=== PATIENT | female | born 1990 | race Caucasian/White ===

== ENCOUNTER 2017-09-17 01:17 | Inpatient (IN) ==
[2017-09-17 01:38] LABS: Bilirubin,Urine Negative (Negative); Blood,Urine Negative (Negative); Clarity,Urine Cloudy (Clear); Color,Urine Yellow (Yellow); Glucose,Urine (UA) Normal (Normal); Ketones,Urine Negative (Negative); Leukocyte Esterase,Urine Negative (Negative); Nitrite,Urine Negative (Negative); PH,Urine 6.5 pH Units (5.0-8.0); Protein,Urine Negative (Neg-Trace); Specific Gravity,Urine 1.013 (1.010-1.025); Urobilinogen,Urine Normal (Normal)
[2017-09-17 01:39] LABS: Bacteria,Urine Few per hpf (None-Few); Hyaline Casts,Urine None Seen per lpf (None-Few); Squamous Epithelial Cell,Urine Many per lpf (None-Few)
[2017-09-17 01:43] LABS: Amphetamine Screen,Urine Negative ng/mL (Cutoff=1000); Barbiturate Screen,Urine Negative ng/mL (Cutoff=200); Benzodiazepines Screen,Urine Negative ng/mL (Cutoff=200); Cannabinoid Screen,Urine Negative ng/mL (Cutoff = 50); Cocaine Screen,Urine Negative ng/mL (Cutoff= 300); Opiate Screen,Urine Negative ng/mL (Cutoff=300); Phencyclidine Screen,Urine Negative ng/mL (Cutoff=25)
[2017-09-17 01:44] LABS: Basophils % 0.4 %; Eosinophils # 0.1 K/mcL (0.0-0.6); Eosinophils % 1.3 %; Hematocrit 46.1 % (35.3-44.9); Hemoglobin 15.4 g/dL (11.5-15.4); Immature Granulocytes % 0.3 % (0-4); Immature Platelets 3.6 % (1.1-6.1); Lymphocytes # 3.1 K/mcL (0.6-4.6); Lymphocytes % 29.3 %; Mean Corpuscular HGB Conc 33.4 g/dL (31.6-35.5); Mean Corpuscular Volume 86.8 fL (83.0-100.0); Mean Platelet Volume 10.1 fL (9.4-12.4); Monocytes # 0.4 K/mcL (0.0-1.3); Monocytes % 4.2 %; Neutrophils # 6.7 K/mcL (1.6-8.9); Platelet Count 253 K/mcL (140-400); Red Blood Count 5.31 M/mcL (3.82-4.97); Red Cell Distribution Width 13.6 % (11.5-14.5); Segmented Neutrophils % 64.5 %
[2017-09-17 01:58] LABS: Acetaminophen < 1.0 mcg/mL (10-30); Ethanol < 10 mg/dL (0-10); Salicylate < 5.0 mg/dL (15.0-30.0)
[2017-09-17 02:03] LABS: BUN/Creatinine Ratio 10 (6-26); Blood Urea Nitrogen 7 mg/dL (6-20); Calcium 10.2 mg/dL (8.6-10.3); Carbon Dioxide 21 mEq/L (23-29); Chloride 108 mEq/L (98-107); Glucose 132 mg/dL (70-105); Osmolality,Calculated 282 (280-300); Potassium 3.9 mEq/L (3.5-5.1); Sodium 136 mEq/L (136-145); eGFR For African Americans > 60 (> 60); eGFR For Non-African Americans > 60 (> 60)
--- NOTE | 2017-09-17 02:41 | Emergency Department Note ---
Disposition Clinical Impression: Suicidal ideation Disposition: Admitted As Inpatient Condition: Good Referrals: NONE,PCP [Primary Care Provider] - Forms: ED Satisfaction Letter Time of Disposition: 03:56 Psych HPI - General Chief Complaint: ED Psychiatric Symptoms Stated Complaint: SI Time Seen by Provider: 09/17/17 01:18 Source: patient, EMS Nursing Notes Reviewed: Yes Vital Signs Reviewed: Yes - History of Present Illness Pt complaint: suicidal ideation If medical clearance, reason: psychiatric condition Onset (ago): month(s) Duration: getting worse History of similar episodes: Yes Improves with: none Worsens with: none Context: significant life stressor (arguing with boyfriend, and unable to see her son) Alleged intoxication: No Associated Psychiatric Symptoms: depression, suicidal ideation, anxiety Associated symptoms: Reports: denies other symptoms Traumatic symptoms: denies traumatic injury Treatments prior to arrival: none Self harm or harm to others: admits thoughts of self harm, has plan (slicing wrist) - Related Data Previous Rx's Medication Instructions Recorded Doxycycline 100 mg PO BID #14 capsule 05/14/17 Loratadine [Claritin] 10 mg PO DAILY #5 tablet 05/14/17 Cephalexin [Keflex] 500 mg PO BID #20 capsule 09/08/17 Gabapentin [Gralise] 300 mg PO DAILY #10 tab.er.24h 09/08/17 Sulfamethoxazole/Trimeth DS 1 each PO BID #6 tablet 09/09/17 [Bactrim DS] Buspirone HCl [Buspar] 10 mg PO BID #20 tablet 09/11/17 HydrOXYzine Pamoate [Vistaril] 50 mg PO BID #20 capsule 09/11/17 Quetiapine Fumarate [SEROquel] 25 mg PO HS #20 tablet 09/11/17 Allergies Allergy/AdvReac Type Severity Reaction Status Date / Time Penicillins Allergy Anaphylaxis Verified 09/11/17 23:32 citalopram [From Celexa] AdvReac Irritable Verified 09/11/17 23:32 Paroxetine [From Paxil] AdvReac Irritable Verified 09/11/17 23:32 All systems ED: reviewed and negative except as stated. Constitutional: Denies: fever, chills Eyes: Denies: vision change ENT ED: Denies: throat pain Cardiovascular: Denies: palpitations Respiratory: Denies: dyspnea Gastrointestinal: Denies: abdominal pain Musculoskeletal: Reports: neck pain (chronic) Integumentary: Reports: abrasion (right forearm) Psychiatric: Reports: anxiety, depression, suicidal thoughts. Denies: homicidal thoughts, auditory hallucinations, visual hallucinations Endocrine: Denies: fatigue Hematological/Lymphatic: Denies: easy bleeding Allergic/Immunologic: Denies: facial swelling Past Medical History - Past Medical History Medical history: Reports: other Psychiatric history: Reports: anxiety, bipolar, depression, schizophrenia [employer] history: Reports: non-contributory - Social History Smoking Status: Current every day smoker Smokeless Tobacco Status: No Alcohol use: Reports: none Drug use: Reports: none Physical Exam - General Limitations: no limitations General appearance: alert, in no apparent distress - Head Head exam: normocephalic - Eye Eye exam: Present: EOMI - ENT ENT exam: mucous membranes moist - Neck Neck exam: Present: full ROM, tenderness. Absent: meningismus, lymphadenopathy - Chest Chest inspection: Present: symmetric chest wall rise - Respiratory Respiratory exam: Absent: respiratory distress - Cardiovascular Cardiovascular exam: Present: normal rhythm - Abdominal Exam Abdominal exam: Present: soft, Non-Tender - Extremities Exam Extremities exam: Present: normal inspection, full ROM, normal capillary refill - Back Exam Back exam: Present: full ROM - Neurological Exam Neurological exam: Present: alert, oriented X3 - Psychiatric Psychiatric exam: Present: normal affect, normal mood. Absent: suicidal ideation - Skin Skin exam: Present: warm, dry, intact, normal color. Absent: rash, cyanosis, diaphoresis Course Course Narrative: Patient presents with suicidal ideation. She mentions a history of previous suicide attempts, anxiety and depression. . She does mention significant life stressors with argument with her boyfriend, and unable to her son. Pt has documented h/o anxiety, bipolar, depression, schizophrenia. Her vitals within normal limits. She is in no acute distress and does not look toxic. We will attempt to medically clear her and if so she will be evaluated by [facility]. - Reevaluation(s) Reevaluation #1: Patient was medically cleared and evaluated by [facility] staff. I discussed patient with behavior health nurse Tra Vanegas RN, who had discussed pt with Dr Trujillo. Pt will be admitted to [facility] for further evaluation and stabilization. Patient was also discussed with Dr. Perez who signed pink slip. Time: 03:56 Vital Signs Temperature 97.6 F 09/17/17 01:18 Pulse Rate 87 09/17/17 01:18 Respiratory Rate 16 09/17/17 01:18 Blood Pressure 102/72 09/17/17 01:18 O2 Sat by Pulse Oximetry 97 09/17/17 01:18 Temperature 97.6 F 09/17/17 01:18 Pulse Rate 87 09/17/17 01:18 Respiratory Rate 16 09/17/17 01:18 Blood Pressure 102/72 09/17/17 01:18 O2 Sat by Pulse Oximetry 97 09/17/17 01:18 Oxygen Delivery Oxygen Delivery Room Air Psych - Lab Data Result diagrams: 09/17/17 01:38 09/17/17 01:38 Lab Results 09/17/17 09/17/17 09/17/17 Range/Units 01:29 01:29 01:29 WBC (4.3-11.1) K/mcL RBC (3.82-4.97) M/mcL Hgb (11.5-15.4) g/dL Hct (35.3-44.9) % MCV (83.0-100.0) fL MCH (28.0-33.3) pg MCHC (31.6-35.5) g/dL RDW (11.5-14.5) % Plt Count (140-400) K/mcL MPV (9.4-12.4) fL Immature Gran % (0-4) % Seg Neutrophils % % Lymphocytes % % Monocytes % % Eosinophils % % Basophils % % Neutrophils # (1.6-8.9) K/mcL Lymphocytes # (0.6-4.6) K/mcL Monocytes # (0.0-1.3) K/mcL Eosinophils # (0.0-0.6) K/mcL Basophils # (0.0-0.2) K/mcL Immature Plt Fraction (1.1-6.1) % Sodium (136-145) mEq/L Potassium (3.5-5.1) mEq/L Chloride (98-107) mEq/L Carbon Dioxide (23-29) mEq/L BUN (6-20) mg/dL Creatinine (0.60-1.20) mg/dL Est GFR ( Amer) (> 60) Est GFR (Non-Af Amer) (> 60) BUN/Creatinine Ratio (6-26) Glucose (70-105) mg/dL Calculated Osmolality (280-300) Calcium (8.6-10.3) mg/dL Urine Color Yellow (Yellow) Urine Clarity Cloudy A (Clear) Urine pH 6.5 (5.0-8.0) pH Units Ur Specific [place] 1.013 (1.010-1.025) Urine Protein Negative (Neg-Trace) mg/dL Urine Glucose (UA) Normal (Normal) mg/dL Urine Ketones Negative (Negative) mg/dL Urine Blood Negative (Negative) Urine Nitrite Negative (Negative) Urine Bilirubin Negative (Negative) Urine Urobilinogen Normal (Normal) mg/dL Ur Leukocyte Esterase Negative (Negative) Urine Microscopic RBC 3-5 H (0-3) per hpf Urine Microscopic WBC 3-5 H (0-3) per hpf Ur Squamous Epith Cells Many H (None-Few) per lpf Urine Bacteria Few (None-Few) per hpf Hyaline Casts None Seen (None-Few) per lpf Urine Test Negative (Negative) Salicylates (15.0-30.0) mg/dL Urine Opiates Screen Negative (Mvtlqa=355) ng/mL Acetaminophen (10-30) mcg/mL Ur Barbiturates Screen Negative (Witpin=616) ng/mL Ur Phencyclidine Scrn Negative (Cutoff=25) ng/mL Ur Amphetamines Screen Negative (Wtwwqq=7733) ng/mL U Benzodiazepines Scrn Negative (Bhmaqi=650) ng/mL Urine Cocaine Screen Negative (Cutoff= 300) ng/mL U Marijuana (THC) Screen Negative (Cutoff = 50) ng/mL Ethyl Alcohol (0-10) mg/dL 18 09/17/17 Range/Units 01:38 01:38 WBC 10.5 (4.3-11.1) K/mcL RBC 5.31 H (3.82-4.97) M/mcL Hgb 15.4 (11.5-15.4) g/dL Hct 46.1 H (35.3-44.9) % MCV 86.8 (83.0-100.0) fL MCH 29.0 (28.0-33.3) pg MCHC 33.4 (31.6-35.5) g/dL RDW 13.6 (11.5-14.5) % Plt Count 253 (140-400) K/mcL MPV 10.1 (9.4-12.4) fL Immature Gran % 0.3 (0-4) % Seg Neutrophils % 64.5 % Lymphocytes % 29.3 % Monocytes % 4.2 % Eosinophils % 1.3 % Basophils % 0.4 % Neutrophils # 6.7 (1.6-8.9) K/mcL Lymphocytes # 3.1 (0.6-4.6) K/mcL Monocytes # 0.4 (0.0-1.3) K/mcL Eosinophils # 0.1 (0.0-0.6) K/mcL Basophils # 0.0 (0.0-0.2) K/mcL Immature Plt Fraction 3.6 (1.1-6.1) % Sodium 136 (136-145) mEq/L Potassium 3.9 (3.5-5.1) mEq/L Chloride 108 H (98-107) mEq/L Carbon Dioxide 21 L (23-29) mEq/L BUN 7 (6-20) mg/dL Creatinine 0.71 (0.60-1.20) mg/dL Est GFR ( Amer) > 60 (> 60) Est GFR (Non-Af Amer) > 60 (> 60) BUN/Creatinine Ratio 10 (6-26) Glucose 132 H (70-105) mg/dL Calculated Osmolality 282 (280-300) Calcium 10.2 (8.6-10.3) mg/dL Urine Color (Yellow) Urine Clarity (Clear) Urine pH (5.0-8.0) pH Units Ur Specific [place] (1.010-1.025) Urine Protein (Neg-Trace) mg/dL Urine Glucose (UA) (Normal) mg/dL Urine Ketones (Negative) mg/dL Urine Blood (Negative) Urine Nitrite (Negative) Urine Bilirubin (Negative) Urine Urobilinogen (Normal) mg/dL Ur Leukocyte Esterase (Negative) Urine Microscopic RBC (0-3) per hpf Urine Microscopic WBC (0-3) per hpf Ur Squamous Epith Cells (None-Few) per lpf Urine Bacteria (None-Few) per hpf Hyaline Casts (None-Few) per lpf Urine Test (Negative) Salicylates < 5.0 L (15.0-30.0) mg/dL Urine Opiates Screen (Iekppi=780) ng/mL Acetaminophen < 1.0 L (10-30) mcg/mL Ur Barbiturates Screen (Nsmkqf=547) ng/mL Ur Phencyclidine Scrn (Cutoff=25) ng/mL Ur Amphetamines Screen (Jqjlvz=6981) ng/mL U Benzodiazepines Scrn (Ronttm=621) ng/mL Urine Cocaine Screen (Cutoff= 300) ng/mL U Marijuana (THC) Screen (Cutoff = 50) ng/mL Ethyl Alcohol < 10 (0-10) mg/dL Psychiatric Medical Clearance - Medical Clearance Checklist Medical History: Panic attack (Acute) Depression (Acute) Fall (Acute) Left hip pain (Acute) Adverse reaction to drug (Inactive) Bronchitis (Inactive) Sinusitis (Inactive) UTI (urinary tract infection) (Inactive) No Social History Section defined Current Vitals: Last Vital Signs Temp 97.6 F 09/17/17 01:18 Pulse 87 09/17/17 01:18 Resp 16 09/17/17 01:18 BP 102/72 09/17/17 01:18 Pulse Ox 97 09/17/17 01:18 Psychiatric Lab Panel: Drug Levels and Toxicity 09/17/17 09/17/17 01:29 01:38 Urine Opiates Screen Negative Acetaminophen < 1.0 L Ur Barbiturates Screen Negative Ur Phencyclidine Scrn Negative Ur Amphetamines Screen Negative U Benzodiazepines Scrn Negative Urine Cocaine Screen Negative U Marijuana (THC) Screen Negative Ethyl Alcohol < 10 Abnormal Labs: Abnormal lab results RBC 5.31 M/mcL (3.82-4.97) H 09/17/17 01:38 Hct 46.1 % (35.3-44.9) H 09/17/17 01:38 Chloride 108 mEq/L (98-107) H 09/17/17 01:38 Carbon Dioxide 21 mEq/L (23-29) L 09/17/17 01:38 Glucose 132 mg/dL (70-105) H 09/17/17 01:38 Urine Clarity Cloudy (Clear) A 09/17/17 01:29 Urine Microscopic RBC 3-5 per hpf (0-3) H 09/17/17 01:29 Urine Microscopic WBC 3-5 per hpf (0-3) H 09/17/17 01:29 Ur Squamous Epith Cells Many per lpf (None-Few) H 09/17/17 01:29 Salicylates < 5.0 mg/dL (15.0-30.0) L 09/17/17 01:38 Acetaminophen < 1.0 mcg/mL (10-30) L 09/17/17 01:38 Statement of Medical Clearance: I have evaluated the patient, reviewed diagnostic information, and certify that the patient's medical condition is sufficiently stable that transfer to the psychiatric unit does not pose a significant risk of deterioration.
--- NOTE | 2017-09-17 02:51 | Emergency Department Note ---
START Narrative - START START: I examined this patient and my medical decision-making was reviewed with the emergency medicine resident. I agree with the documented findings, disposition and treatment plan as described except to the extent set forth below. Patient seen with physician medical billing assistant Deny Magallanes, Please see a copy of his note for details of the H&P, ED evaluation, management and disposition. I have independently evaluated the patient and confirmed appropriate portions of the history and physical exam. Briefly: A 27 year old email patient is medically clear. Patient is being seen by mental health services. Disposition pending.
[2017-09-17] MEDS ORDERED: Haloperidol Lactate 5 MG/ML VIAL IM PRN (04:33)
[2017-09-17] MEDS ORDERED: *HR* LORazepam 2 MG/ML VIAL IM PRN (04:33)
[2017-09-17] MEDS ORDERED: Mag Hydrox/Al Hydrox/Simeth 30 ML UDC PO PRN (04:33)
[2017-09-17] MEDS ORDERED: MOM Conc 10 ML UD.LIQ PO PRN (04:33)
[2017-09-17] MEDS ORDERED: *HR* LORazepam 1 MG TABLET PO PRN (04:33)
[2017-09-17] MEDS: Ibuprofen 400 MG TABLET PO PRN ×2 (05:07→17:12)
--- NOTE | 2017-09-17 11:35 | Psychiatry History & Physical ---
Date of Encounter: 09/17/17 Time of Encounter: 11:30 History of Present Illness Patient Stated Chief Complaint: suicida ideation Medicare Admission Attestation: For traditional Medicare patients the provided hospital inpatient services are reasonable and necessary and in the case of services not specified as inpatient -only under 42 CFR 419.22 (n), that they are appropriately provided as inpatient services in accordance 42 CFR 412.3. For Critical Access Hospital the patient may reasonably be expected to be discharged or transferred to a hospital within 96 hours after admission to the Critical Access Hospital. Admitted From: Home Plans for Post Hospital Care: Home History of Present Illness: Ms. Bowie is a 27 year old female who was admitted secondary to suicidal ideation. Reports depression with SI off and on for the past ten years. Multiple prior hospitalizations in [place] where she is from. Moved here two months ago to be with boyfriend. No mental health linkage yet. Claims she previously took Seroquel, Zoloft, Neurontin, and Buspar with good results. Very focused on receiving Neurontin. Physically she has a pinched nerve in her back/leg and some urinary incontinence. Also reports she has been falling a lot. Recently injured her neck in a fall. Claims she has torn ligaments and is supposed to wear a neck brace. Boyfriend to bring in brace. Started cutting with a razor for the first time approx two weeks ago. Boyfriend told her she needed to come into the hospital and get help if she wants to continue to live with him. No substance abuse issues other than occasional THC use. Tox screen negative. Suspect there are some developmental/cognitive issues as well. Unsophisticated. Past Med Surg Social Fam HX - Past Medical History Medical history: asthma, diabetes, other - Past Psychiatric History Psychiatric history: Reports: anxiety, bipolar, depression, previous psychiatric hospitalization Family psychiatric history: Unknown Family History of Suicide: Unknown - Social History Smoking Status: Current every day smoker Smokeless Tobacco Status: No Alcohol use: none Drug use: marijuana Medications & Allergies Doxycycline 100 mg PO BID #14 capsule 05/14/17 [Rx] Loratadine [Claritin] 10 mg PO DAILY #5 tablet 05/14/17 [Rx] Cephalexin [Keflex] 500 mg PO BID #20 capsule 09/08/17 [Rx] Gabapentin [Gralise] 300 mg PO DAILY #10 tab.er.24h 09/08/17 [Rx] Sulfamethoxazole/Trimeth DS [Bactrim DS] 1 each PO BID #6 tablet 09/09/17 [Rx] Buspirone HCl [Buspar] 10 mg PO BID #20 tablet 09/11/17 [Rx] HydrOXYzine Pamoate [Vistaril] 50 mg PO BID #20 capsule 09/11/17 [Rx] Quetiapine Fumarate [SEROquel] 25 mg PO HS #20 tablet 09/11/17 [Rx] 3 Allergy/AdvReac Type Severity Reaction Status Date / Time Penicillins Allergy Anaphylaxis Verified 09/11/17 23:32 citalopram [From Celexa] AdvReac Irritable Verified 09/11/17 23:32 Paroxetine [From Paxil] AdvReac Irritable Verified 09/11/17 23:32 Review of Systems Constitutional: Denies: fever, chills, weakness, weight change Eyes: Denies: eye pain, vision change Ears, Nose, Throat: Denies: ear pain, throat pain, dental pain, hearing loss, congestion Cardiovascular: Denies: chest pain, palpitations, dyspnea on exertion Respiratory: Denies: cough, dyspnea, wheezes Gastrointestinal: Denies: abdominal pain, nausea, vomiting, diarrhea, constipation Genitourinary male: Denies: urgency, dysuria, frequency, genital lesions Genitourinary female: Reports: urgency. Denies: dysuria, frequency, abnormal menses, dyspareunia Musculoskeletal: Reports: back pain Integumentary: Denies: rash, lesions, pruritus Neurological: Reports: weakness Endocrine: Denies: fatigue, heat or cold intolerance Hematologic/Lymphatic: Denies: easy bruising, lymphadenopathy Allergic/Immunologic: Denies: urticaria, itchy eyes Mental Status Exam Patient orientation: Yes Person, Yes Time, Yes Place Level of alertness: Alert Patient appearance: Appropriate Behavior: calm, cooperative Psychomotor activity: Normal Eye contact: Maintains Eye Contact Mood description: Depressed Affect description: congruent with mood Speech volume: Normal Thought process: [place] Thought content: Yes Suicidal ideation, No Homicidal ideation, No Overt delusions Perceptual disturbances: No Auditory hallucinations, No Visual hallucinations Attention span: Capable of Focused Attention Memory description: Grossly Intact Patient reliability: Reliable Historian Intelligence estimate: Below Average Judgment: Limited Insight: Partial Exam - HEENT Head exam IM: Present: atraumatic Eye exam IM: Present: EOMI ENT exam IM: Present: mucous membranes moist - Neurological Neurological exam IM: Present: alert, oriented X3 - Respiratory Respiratory exam IM: Present: CTAB - GI/Abdominal GI/Abdominal exam IM: Present: normal bowel sounds - Extremities Extremities exam IM: Present: full ROM - Skin Skin exam IM: Present: normal color Results - Vital Signs Vital signs: Temp Pulse Resp BP Pulse Ox 98.8 F 81 16 119/64 97 09/17/17 09:00 09/17/17 09:00 09/17/17 09:00 09/17/17 09:00 09/17/17 01:18 - Labs Labs: Laboratory Last Values WBC 10.5 K/mcL (4.3-11.1) 09/17/17 01:38 RBC 5.31 M/mcL (3.82-4.97) H 09/17/17 01:38 Hgb 15.4 g/dL (11.5-15.4) 09/17/17 01:38 Hct 46.1 % (35.3-44.9) H 09/17/17 01:38 MCV 86.8 fL (83.0-100.0) 09/17/17 01:38 MCH 29.0 pg (28.0-33.3) 09/17/17 01:38 MCHC 33.4 g/dL (31.6-35.5) 09/17/17 01:38 RDW 13.6 % (11.5-14.5) 09/17/17 01:38 Plt Count 253 K/mcL (140-400) 09/17/17 01:38 MPV 10.1 fL (9.4-12.4) 09/17/17 01:38 Immature Gran % 0.3 % (0-4) 09/17/17 01:38 Seg Neutrophils % 64.5 % 09/17/17 01:38 Lymphocytes % 29.3 % 09/17/17 01:38 Monocytes % 4.2 % 09/17/17 01:38 Eosinophils % 1.3 % 09/17/17 01:38 Basophils % 0.4 % 09/17/17 01:38 Neutrophils # 6.7 K/mcL (1.6-8.9) 09/17/17 01:38 Lymphocytes # 3.1 K/mcL (0.6-4.6) 09/17/17 01:38 Monocytes # 0.4 K/mcL (0.0-1.3) 09/17/17 01:38 Eosinophils # 0.1 K/mcL (0.0-0.6) 09/17/17 01:38 Basophils # 0.0 K/mcL (0.0-0.2) 09/17/17 01:38 Immature Plt Fraction 3.6 % (1.1-6.1) 09/17/17 01:38 Sodium 136 mEq/L (136-145) 09/17/17 01:38 Potassium 3.9 mEq/L (3.5-5.1) 09/17/17 01:38 Chloride 108 mEq/L (98-107) H 09/17/17 01:38 Carbon Dioxide 21 mEq/L (23-29) L 09/17/17 01:38 BUN 7 mg/dL (6-20) 09/17/17 01:38 Creatinine 0.71 mg/dL (0.60-1.20) 09/17/17 01:38 Est GFR ( Amer) > 60 (> 60) 09/17/17 01:38 Est GFR (Non-Af Amer) > 60 (> 60) 09/17/17 01:38 BUN/Creatinine Ratio 10 (6-26) 09/17/17 01:38 Glucose 132 mg/dL (70-105) H 09/17/17 01:38 Calculated Osmolality 282 (280-300) 09/17/17 01:38 Calcium 10.2 mg/dL (8.6-10.3) 09/17/17 01:38 Urine Color Yellow (Yellow) 09/17/17 01:29 Urine Clarity Cloudy (Clear) A 09/17/17 01:29 Urine pH 6.5 pH Units (5.0-8.0) 09/17/17 01:29 Ur Specific [place] 1.013 (1.010-1.025) 09/17/17 01:29 Urine Protein Negative mg/dL (Neg-Trace) 09/17/17 01: Urine Glucose (UA) Normal mg/dL (Normal) 09/17/17 01: Urine Ketones Negative mg/dL (Negative) 09/17/17 01:29 Urine Blood Negative (Negative) 09/17/17 01:29 Urine Nitrite Negative (Negative) 09/17/17 01:29 Urine Bilirubin Negative (Negative) 09/17/17 01:29 Urine Urobilinogen Normal mg/dL (Normal) 09/17/17 01:29 Ur Leukocyte Esterase Negative (Negative) 09/17/17 01:29 Urine Microscopic RBC 3-5 per hpf (0-3) H 09/17/17 01:29 Urine Microscopic WBC 3-5 per hpf (0-3) H 09/17/17 01:29 Ur Squamous Epith Cells Many per lpf (None-Few) H 09/17/17 01:29 Urine Bacteria Few per hpf (None-Few) 09/17/17 01:29 Hyaline Casts None Seen per lpf (None-Few) 09/17/17 01:29 Urine Test Negative (Negative) 09/17/17 01:29 Salicylates < 5.0 mg/dL (15.0-30.0) L 09/17/17 01:38 Urine Opiates Screen Negative ng/mL (Ecarki=721) 09/17/17 01:29 Acetaminophen < 1.0 mcg/mL (10-30) L 09/17/17 01:38 Ur Barbiturates Screen Negative ng/mL (Gulfjy=856) 09/17/17 01:29 Ur Phencyclidine Scrn Negative ng/mL (Cutoff=25) 09/17/17 01:29 Ur Amphetamines Screen Negative ng/mL (Dzmmzi=2108) 09/17/17 01:29 U Benzodiazepines Scrn Negative ng/mL (Warwge=535) 09/17/17 01:29 Urine Cocaine Screen Negative ng/mL (Cutoff= 300) 09/17/17 01:29 U Marijuana (THC) Screen Negative ng/mL (Cutoff = 50) 09/17/17 01:29 Ethyl Alcohol < 10 mg/dL (0-10) 09/17/17 01:38 Assessment and Plan (1) Bipolar 2 disorder Current visit: Yes Status: Acute Plan: Admit inpatient for safety and stabilization, Close observation, Suicide Precautions per unit protocol, Encourage participation in unit milieu, Group Therapy, Monitor sleep, Monitor appetite Risks, benefits, side effects, alternatives discussed w/pt: Yes Patient agreeable to treatment: Yes Plans for Post Hospital Care: Home Estimated Length of Stay (Days): 3
[2017-09-17] MEDS: Gabapentin 300 MG CAPSULE PO SCH ×2 (15:02→21:11)
[2017-09-18] MEDS: Gabapentin 300 MG CAPSULE PO SCH ×3 (08:51→20:57)
[2017-09-18] MEDS: Ibuprofen 400 MG TABLET PO PRN ×3 (10:27→22:32)
--- NOTE | 2017-09-18 13:21 | Psychiatry Progress Note ---
Date of Encounter: 09/19/17 Time of Encounter: 13:05 Subjective Interval history: Patient tells me "I am doing pretty good today". She states that she is glad to be back on medication and denies any side effects. She states that she slept 3 to 4 hours last night. When I ask her about thoughts regarding hurting herself she states that she only cut on herself once 2 weeks ago and has not felt the urge to cut on herself today. She states that she is not suicidal has been thinking about those statements she made at admission. She states that she does not want to because she loves her son and wants to be in his life. She also misses her boyfriend and her dog. She states that she has been off her medication since leaving [place] a couple months ago and is glad she is getting stabilized on her medications. She is hopeful to be discharge soon. She denies suicidal homicidal ideation she denies auditory or visual hallucinations. She denies any S/S of depression or anxiety. Objective: Exam Patient orientation: Yes Person, Yes Time, Yes Place, Yes Circumstance Level of alertness: Alert Patient appearance: Appropriate Behavior: nervous Psychomotor activity: Normal Eye contact: Fleeting Contact Mood description: Anxious Affect description: congruent with mood Speech pattern: Normal rate, Normal rhythm, Normal tone Speech volume: Normal Thought process: Intact Judgment: Fair Insight: Partial Results - Vital Signs Vital Signs: Temp Pulse Resp BP Pulse Ox 97.8 F 54 16 82/51 97 09/18/17 09:00 09/18/17 09:00 09/18/17 09:00 09/18/17 09:00 09/17/17 01:18 Assessment and Plan (1) Bipolar 2 disorder Current visit: Yes Status: Acute Plan: Continue hospitalization, Close observation, Suicide Precautions per unit protocol, Encourage participation in unit milieu, Group Therapy, Monitor sleep Risks, benefits, side effects, alternatives discussed w/pt: Yes (Continue to stabilize on medications that were restarted.) Patient agreeable to treatment : Yes Consult Discharge Plan - Plan Referrals: [facility] [Outside] - 09/27/17 10:30 am (The above appointment is with Amy Ortiz, counselor at [facility]. Your first appointment will be very thorough and the total appointment time will take between two and three hours. You will be completing paperwork, meeting with a counselor and a nurse, and developing a treatment plan. You will receive follow- up appointments for on-going services , which could include community support, mental health and substance abuse counseling, groups/partial hospitalization programming, medication assisted treatment, and psychiatric medication management. Please bring the following with you to your first visit to the clinic: 1) proof of household income (two consecutive pay stubs, social security award letter, bank statement, statement letter from [facility], child support statement, IRS 1040 or W2 form, or a statement from the person who financially supports you stating they help provide for your basic needs), 2) proof of residency (drivers license, a piece of mail showing your address, a statement from person you live with verifying you live at their address), 3) your social security card, 4) photo ID, and 5) your insurance card (if you have commercial insurance you must call to obtain a prior authorization number before you arrive to your first appointment). If you do not bring these items, you will not be seen. ) Kira Zavaleta [Advanced Practice Nurse] - 09/24/17 9:30 am (The above appointment is with Kira Zavaleta CNP, at Primary [facility] within [facility]. This appointment is to establish you with a primary care provider. Your needs for medication will be assessed and treated as indicated as well. Please arrive 15 minutes early to complete paperwork. Please bring your insurance card, photo ID and list of current medications to your first appointment. The above appointment(s) reflects first availability. You may contact the office regularly to check for cancellations that may allow you to be seen sooner.)
[2017-09-18] MEDS: Nicotine 21 MG PATCH.TD24 TD SCH (18:52)
[2017-09-18] MEDS: hydrOXYzine pamoate 25 MG CAPSULE PO PRN (22:32)
[2017-09-19] MEDS: Ibuprofen 400 MG TABLET PO PRN ×2 (05:40→17:52)
--- NOTE | 2017-09-19 08:46 | Psychiatry Progress Note ---
Date of Encounter: 09/19/17 Time of Encounter: 08:45 Subjective Interval history: Patient tells me today "I am doing better, a lot better". She states her anxiety and depression are have improved greatly with restarting her medications. She denies any side effects of medications. She states her mood is less up-and-down and she is focused on the future more. She is engaging on the unit going to groups. She is sleeping without problems, having slept 8 hours last night. She denies suicidal/homicidal ideation, auditory or visual hallucinations. She is working with the pediatric social worker today for discharge planning to get her appointment set up for probable discharge tomorrow. Objective: Exam Patient orientation: Yes Person, Yes Time, Yes Circumstance Level of alertness: Alert Patient appearance: Well Groomed Behavior: anxious (mildly) Psychomotor activity: Normal Eye contact: Minimal Contact Mood description: Anxious Affect description: congruent with mood Speech pattern: Normal rate, Normal rhythm, Normal tone Speech volume: Normal Thought process: Intact, Linear Thought content: Yes Intact Judgment: Fair Insight: Partial Results - Vital Signs Vital Signs: Temp Pulse Resp BP Pulse Ox 99.3 F 56 18 99/60 97 09/18/17 21:00 09/18/17 21:00 09/18/17 21:00 09/18/17 21:00 09/17/17 01:18 Assessment and Plan (1) Bipolar 2 disorder Current visit: Yes Status: Acute Plan: Continue hospitalization, Close observation, Encourage participation in unit milieu, Group Therapy, Monitor sleep Risks, benefits, side effects, alternatives discussed w/pt: Yes (Continue to stabilize on medications that were restarted.) Patient agreeable to treatment: Yes Consult Discharge Plan - Plan Referrals: [facility] [Outside] - 09/27/17 10:30 am (The above appointment is with Amy Ortiz, counselor at [facility]. Your first appointment will be very thorough and the total appointment time will take between two and three hours. You will be completing paperwork, meeting with a counselor and a nurse, and developing a treatment plan. You will receive follow- up appointments for on-going services , which could include community support, mental health and substance abuse counseling, groups/partial hospitalization programming, medication assisted treatment, and psychiatric medication management. Please bring the following with you to your first visit to the clinic: 1) proof of household income (two consecutive pay stubs, social security award letter, bank statement, statement letter from [facility], child support statement, IRS 1040 or W2 form, or a statement from the person who financially supports you stating they help provide for your basic needs), 2) proof of residency (drivers license, a piece of mail showing your address, a statement from person you live with verifying you live at their address), 3) your social security card, 4) photo ID, and 5) your insurance card (if you have commercial insurance you must call to obtain a prior authorization number before you arrive to your first appointment). If you do not bring these items, you will not be seen. ) Kira Zavaleta [Advanced Practice Nurse] - 09/24/17 9:30 am (The above appointment is with Kira Zavaleta CNP, at Primary [facility] within [facility]. This appointment is to establish you with a primary care provider. Your needs for medication will be assessed and treated as indicated as well. Please arrive 15 minutes early to complete paperwork. Please bring your insurance card, photo ID and list of current medications to your first appointment. The above appointment(s) reflects first availability. You may contact the office regularly to check for cancellations that may allow you to be seen sooner.)
[2017-09-19] MEDS: Gabapentin 300 MG CAPSULE PO SCH ×3 (09:11→21:17)
[2017-09-19] MEDS: Nicotine 21 MG PATCH.TD24 TD SCH (09:12)
[2017-09-19] MEDS: hydrOXYzine pamoate 25 MG CAPSULE PO PRN ×2 (10:00→21:17)
[2017-09-20] MEDS: Gabapentin 300 MG CAPSULE PO SCH (08:09)
[2017-09-20] MEDS: Nicotine 21 MG PATCH.TD24 TD SCH (08:10)
[2017-09-20 08:23] VITALS: BP 105/72
[2017-09-20] MEDS: Ibuprofen 400 MG TABLET PO PRN (10:13)
--- NOTE | 2017-09-20 11:30 | Discharge Summary ---
Date of Encounter: 09/20/17 Time of Encounter: 11:20 Diagnosis - Discharge Diagnosis (1) Bipolar 2 disorder Status: Acute Medications - Discharge Medications Prescriptions: Buspirone HCl [Buspar] 7.5 mg PO BID 30 Days #60 tablet Gabapentin [Neurontin] 300 mg PO TID 30 Days #90 capsule hydrOXYzine pamoate [HydrOXYzine Pamoate] 25 mg PO TID PRN 30 Days #30 capsule PRN Reason: Anxiety Quetiapine Fumarate [Seroquel] 25 mg PO HS 30 Days #30 tablet Sertraline [Zoloft] 50 mg PO DAILY 30 Days #30 tablet Loratadine [Claritin] 10 mg PO DAILY #5 tablet 05/14/17 [Rx] Buspirone HCl [Buspar] 7.5 mg PO BID 30 Days #60 tablet 09/20/17 [Rx] Gabapentin [Neurontin] 300 mg PO TID 30 Days #90 capsule 09/20/17 [Rx] Quetiapine Fumarate [Seroquel] 25 mg PO HS 30 Days #30 tablet 09/20/17 [Rx] Sertraline [Zoloft] 50 mg PO DAILY 30 Days #30 tablet 09/20/17 [Rx] hydrOXYzine pamoate [HydrOXYzine Pamoate] 25 mg PO TID PRN 30 Days #30 capsule 09/20/17 [Rx] 3 Allergy/AdvReac Type Severity Reaction Status Date / Time Penicillins Allergy Anaphylaxis Verified 09/11/17 23:32 citalopram [From Celexa] AdvReac Irritable Verified 09/11/17 23:32 Paroxetine [From Paxil] AdvReac Irritable Verified 09/11/17 23:32 Provider Date of admission: 09/17/17 04:02 Primary care physician: PCP NONE Assessment and Plan - Patient/Caregiver Discharge Instructions Activity: resume usual activities as tolerated Diet: regular diet - Follow up Plan Follow up with: [facility] [Outside] - 09/27/17 10:30 am (The above appointment is with Amy Ortiz, counselor at [facility]. [facility] will pick you up for this appointment and take you home. Your first appointment will be very thorough and the total appointment time will take between two and three hours. You will be completing paperwork, meeting with a counselor and a nurse, and developing a treatment plan. You will receive follow- up appointments for on- going services, which could include community support, mental health and substance abuse counseling, groups/partial hospitalization programming, medication assisted treatment, and psychiatric medication management. Please bring the following with you to your first visit to the clinic: 1) proof of household income (two consecutive pay stubs, social security award letter, bank statement, statement letter from [facility], child support statement, IRS 1040 or W2 form, or a statement from the person who financially supports you stating they help provide for your basic needs), 2) proof of residency (drivers license, a piece of mail showing your address, a statement from person you live with verifying you live at their address), 3) your social security card, 4) photo ID , and 5) your insurance card (if you have commercial insurance you must call to obtain a prior authorization number before you arrive to your first appointment) . If you do not bring these items, you will not be seen. ) Kelsey Cruz CNP [Advanced Practice Nurse] - 10/09/17 2:00 pm (The above appointment is with Kelsey Cruz for primary health care and medication management services. [facility] will pick you up for this appointment and take you home. Please arrive 10 minutes early to complete the check-in process. You will receive a new patient packet in the mail. Please complete that packet and bring it with you to this appointment. If you are unable to complete your new patient packet, please arrive 30 minutes early to your first appointment to complete this packet in the office. Please also bring your insurance card (or [employer] award letter), photo ID, and all medications in their original bottles to this appointment. If you are unable to keep this appointment, 24 hour business notice of cancellation is expected. If you miss your new patient appointment, you cannot be re-scheduled in this practice. The above appointment(s) reflects first availability. You may contact the office regularly to check for cancellations that may allow you to be seen sooner. ) Functional capacity at discharge: independent ambulation Overall status at discharge: Stable Disposition: Home, Self-Care Hospital Course Hospital course: Ms. Bowie is a 27 year old female who is admitted for via the emergency room after having thoughts of suicide; feeling very anxious and depressed. Patient had moved to [place] from [place] about 2 months ago and had ran out of her medications and had not established with the physician for prescription refills in [facility]. She was restarted on medication she ran out of which included BuSpar and Seroquel and Zoloft targeting her depression and anxiety. Patient was having problems sleeping feeling anxious and depressed and having thoughts of killing herself. She cut her right wrist superficially 2 weeks previously, but no SIB in the 2 weeks prior to the admission. While she was on the unit she engaged in the unit activities progressively improving in her attendance over the period in time she was here. She noticed her mood starting to improve and she felt much more relaxed and less depressed; more future oriented. She denied any safety issue in her home and was talking to her boyfriend frequently while on the unit. She was looking forward to discharging and being established with a psychiatrist and mental health agency in the [facility]. She was looking forward to going back and living with her boyfriend playing with her dog. Her sleep improved while she was on the unit her oral intake was average with a good appetite. Her mood stabilized in that she was no longer fluctuating between anxiety and depression. She was not having auditory or visual hallucinations. She is not having thoughts of hurting yourself or anybody else. Discharge follow-up appointments of the planned patients being discharged with a 30 day supply of all for medications that she was released stabilizers Don. Patient has transportation arrangement pickup is being discharged. Time spent discussing smoking cessation with patient: 3 to 10 minutes Does patient wish to continue nicotine replacement upon disc: No - Time Spent with Patient Total time spent providing and/or coordinating discharge services: 25 min Less than 30 minutes Quality - Multiple Antipsychotics Patient discharged on 2 or more antipsychotic medications: No Procedures - Procedures Procedures: Medication Management, Crisis Stabilization, Supportive Therapy, Group Therapy, Psychoeducational Therapy Mental Status Exam - Mental Status Exam Patient orientation: Yes Person, Yes Time, Yes Place, Yes Circumstance Level of alertness: Alert Patient appearance: Appropriate, Well-nourished Behavior: calm Psychomotor activity: Normal Eye contact: Maintains Eye Contact Mood description: Euthymic/stable Affect description: congruent with mood Speech pattern: Normal rate, Normal rhythm, Normal tone Speech Volume: Normal Thought process: Intact Thought Content: Yes Intact Judgment: Fair Insight: Partial
== END 2017-09-20 14:10 | disposition home or self-care (01) | DRG 885 ==
LOC: EMEROO 01:17 → 1ANU 04:02
PROVIDERS: ADMIT Psychiatry & Neurology Psychiatry; ATTEND Psychiatry & Neurology Psychiatry

== ENCOUNTER 2018-01-30 05:37 | Inpatient (IN) ==
[2018-01-30] MEDS ORDERED: clonazePAM 1 MG TABLET PO ONE (05:51)
--- NOTE | 2018-01-30 05:54 | Emergency Department Note ---
Disposition Clinical Impression: Mental health disorder Disposition: Home, Self-Care Condition: Good Instructions: Depression (ED) Referrals: NONE,PCP [Primary Care Provider] - General Adult HPI - General Chief complaint: ED Psychiatric Symptoms Stated complaint: SI Time Seen by Provider: 01/30/18 05:51 Source: patient Limitations: no limitations Nursing Notes Reviewed: Yes Vital Signs Reviewed: Yes - History of Present Illness HPI Narrative: 27-year-old female who is a frequent utilizer of emergency department with ongoing suicidal ideations and significant mental health disorders who is now requesting medication changes due to ongoing suicidality. General: No acute distress HEENT: Pupils equal and reactive to light, extraoccular muscle movement is normal, TMS are clear bilaterally. Heart: RRR, No murmor rub or gallop Lungs: lungs clear, no wheezing, rales or ronchi. ABD: SNT, no focal areas or tenderness, no guarding or rebound tenderness. Extremities: No cyanosis, clubbing or edema Neuro: CN 2-12 in tact, no focal deficit. strength 5/5. Medical decision making Will obtain basic screening labs, consult Ia, I do not think the patient has true suicidality however we will obtain psychiatric consultation and likely defer to outpatient management. The patient has complicated social needs and likely has knowledge deficit in mental health outpatient management. Pain Scale: 8 - Related Data Previous Rx's Medication Instructions Recorded Loratadine [Claritin] 10 mg PO DAILY #5 tablet 05/14/17 Buspirone HCl [Buspar] 7.5 mg PO BID 30 Days #60 tablet 09/20/17 Gabapentin [Neurontin] 300 mg PO TID 30 Days #90 capsule 09/20/17 Quetiapine Fumarate [Seroquel] 25 mg PO HS 30 Days #30 tablet 09/20/17 Sertraline [Zoloft] 50 mg PO DAILY 30 Days #30 tablet 09/20/17 hydrOXYzine pamoate [HydrOXYzine 25 mg PO TID PRN 30 Days #30 09/20/17 Pamoate] capsule Acyclovir [Zovirax] 200 mg PO 5XD #50 capsule 10/12/17 Acetaminophen [Tylenol] 1,000 mg PO TID #30 tablet 10/17/17 Ibuprofen [Motrin] 800 mg PO Q8HR #30 tablet 10/17/17 Albuterol Sulfate [Ventolin Hfa] 18 gm IH Q6HR PRN #1 hfa.aer.ad 10/19/17 Famotidine [Pepcid] 40 mg PO BID #60 tablet 11/04/17 Ondansetron ODT [Zofran ODT] 4 mg SL Q6HR PRN #10 tab.rapdis 11/04/17 Allergies Allergy/AdvReac Type Severity Reaction Status Date / Time Penicillins Allergy Anaphylaxis Verified 09/11/17 23:32 citalopram [From Celexa] AdvReac Irritable Verified 09/11/17 23:32 Paroxetine [From Paxil] AdvReac Irritable Verified 09/11/17 23:32 All systems ED: reviewed and negative except as stated. 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 - Social History Smoking Status: Current every day smoker Smokeless Tobacco Status: No Alcohol use: Reports: none Drug use: Reports: marijuana Physical Exam - General Limitations: no limitations General appearance: alert, in no apparent distress Course Vital Signs Temperature 98.1 F 01/30/18 05:42 Pulse Rate 75 01/30/18 05:42 Respiratory Rate 16 01/30/18 05:42 Blood Pressure 94/66 01/30/18 05:42 O2 Sat by Pulse Oximetry 98 01/30/18 05:42 Temperature 98.1 F 01/30/18 05:42 Pulse Rate 75 01/30/18 05:42 Respiratory Rate 16 01/30/18 05:42 Blood Pressure 94/66 01/30/18 05:42 O2 Sat by Pulse Oximetry 98 01/30/18 05:42 Oxygen Delivery Oxygen Delivery Room Air
[2018-01-30] MEDS ORDERED: clonazePAM 0.5 MG TABLET PO ONE (06:00)
[2018-01-30 06:08] LABS: Bilirubin,Urine Small (Negative); Blood,Urine Negative (Negative); Clarity,Urine Cloudy (Clear); Color,Urine Dark Yellow (Yellow); Glucose,Urine (UA) Normal (Normal); Ketones,Urine Negative (Negative); Leukocyte Esterase,Urine Negative (Negative); Nitrite,Urine Negative (Negative); Protein,Urine Trace mg/dL (Neg-Trace); Specific Gravity,Urine > 1.030 (1.010-1.025); Urobilinogen,Urine Normal (Normal)
[2018-01-30 06:09] LABS: Bacteria,Urine None Seen per hpf (None-Few); Hyaline Casts,Urine None Seen per lpf (None-Few); Squamous Epithelial Cell,Urine Many per lpf (None-Few)
[2018-01-30 06:20] LABS: Amphetamine Screen,Urine Negative ng/mL (Cutoff=1000); Barbiturate Screen,Urine Negative ng/mL (Cutoff=200); Benzodiazepines Screen,Urine Negative ng/mL (Cutoff=200); Cannabinoid Screen,Urine Negative ng/mL (Cutoff = 50); Cocaine Screen,Urine Negative ng/mL (Cutoff= 300); Opiate Screen,Urine Negative ng/mL (Cutoff=300); Phencyclidine Screen,Urine Negative ng/mL (Cutoff=25)
[2018-01-30 06:27] LABS: Basophils % 0.3 %; Eosinophils # 0.3 K/mcL (0.0-0.6); Eosinophils % 3.2 %; Hemoglobin 12.4 g/dL (11.5-15.4); Immature Granulocytes % 0.2 % (0-4); Lymphocytes # 3.6 K/mcL (0.6-4.6); Lymphocytes % 40.4 %; Mean Corpuscular HGB Conc 33.5 g/dL (31.6-35.5); Mean Corpuscular Hemoglobin 28.8 pg (28.0-33.3); Mean Corpuscular Volume 85.8 fL (83.0-100.0); Mean Platelet Volume 10.1 fL (9.4-12.4); Monocytes # 0.6 K/mcL (0.0-1.3); Neutrophils # 4.4 K/mcL (1.6-8.9); Nucleated Red Blood Cells 0.3 /100 WBC (0); Platelet Count 208 K/mcL (140-400); Red Blood Count 4.31 M/mcL (3.82-4.97); Red Cell Distribution Width 13.4 % (11.5-14.5); Segmented Neutrophils % 48.9 %
[2018-01-30 06:43] LABS: Calcium Oxalate Crystals,Urine Present
[2018-01-30 06:49] LABS: Acetaminophen < 10 mcg/mL (10-20); BUN/Creatinine Ratio 14 (6-26); Blood Urea Nitrogen 10 mg/dL (6-20); Calcium 9.6 mg/dL (8.6-10.3); Carbon Dioxide 22 mEq/L (23-29); Chloride 109 mEq/L (98-107); Ethanol < 10 mg/dL (Less than 10); Glucose 96 mg/dL (70-105); Osmolality,Calculated 283 (280-300); Potassium 3.8 mEq/L (3.5-5.1); Salicylate < 2.5 mg/dL (15.0-30.0); Sodium 137 mEq/L (136-145); eGFR For African Americans > 60 (> 60); eGFR For Non-African Americans > 60 (> 60)
--- NOTE | 2018-01-30 07:01 | Emergency Department Note ---
Disposition Clinical Impression: Mental health disorder Disposition: Admitted As Inpatient Condition: Good Instructions: Depression (ED) Referrals: NONE,PCP [Primary Care Provider] - Forms: ED Satisfaction Letter Time of Disposition: 10:34 General Adult HPI - General Chief complaint: ED Psychiatric Symptoms Stated complaint: SI Time Seen by Provider: 01/30/18 05:51 Source: patient Limitations: no limitations - History of Present Illness Pain Scale: 8 - Related Data Previous Rx's Medication Instructions Recorded Buspirone HCl [Buspar] 7.5 mg PO BID 30 Days #60 tablet 09/20/17 Gabapentin [Neurontin] 300 mg PO TID 30 Days #90 capsule 09/20/17 Sertraline [Zoloft] 50 mg PO DAILY 30 Days #30 tablet 09/20/17 hydrOXYzine pamoate [HydrOXYzine 25 mg PO TID PRN 30 Days #30 09/20/17 Pamoate] capsule Allergies Allergy/AdvReac Type Severity Reaction Status Date / Time Penicillins Allergy Anaphylaxis Verified 01/30/18 10:02 citalopram [From Celexa] AdvReac Irritable Verified 01/30/18 10:02 Paroxetine [From Paxil] AdvReac Irritable Verified 01/30/18 10:02 Past Medical History - Past Medical History Medical history: Reports: asthma, diabetes, renal disease Psychiatric history: Reports: anxiety, bipolar, depression, previous psychiatric hospitalization [employer] history: Reports: non-contributory - Social History Smoking Status: Current every day smoker Smokeless Tobacco Status: No Alcohol use: Reports: none Drug use: Reports: marijuana Physical Exam - General Limitations: no limitations General appearance: alert, in no apparent distress Course Vital Signs Temperature 98.1 F 01/30/18 05:42 Pulse Rate 75 01/30/18 05:42 Respiratory Rate 16 01/30/18 05:42 Blood Pressure 94/66 01/30/18 05:42 O2 Sat by Pulse Oximetry 98 01/30/18 05:42 Temperature 98.1 F 01/30/18 05:42 Pulse Rate 75 01/30/18 05:42 Respiratory Rate 16 01/30/18 05:42 Blood Pressure 94/66 01/30/18 05:42 O2 Sat by Pulse Oximetry 98 01/30/18 05:42 Oxygen Delivery Oxygen Delivery Room Air Medical Decision Making - Lab Data Result diagrams: 01/30/18 06:00 01/30/18 05:51 Lab Results 01/30/18 01/30/18 01/30/18 Range/Units 05:51 06:00 06:00 WBC (4.3-11.1) K/mcL RBC (3.82-4.97) M/mcL Hgb (11.5-15.4) g/dL Hct (35.3-44.9) % MCV (83.0-100.0) fL MCH (28.0-33.3) pg MCHC (31.6-35.5) g/dL RDW (11.5-14.5) % Plt Count (140-400) K/mcL MPV (9.4-12.4) fL Immature Gran % (0-4) % Seg Neutrophils % % Lymphocytes % % Monocytes % % Eosinophils % % Basophils % % Neutrophils # (1.6-8.9) K/mcL Lymphocytes # (0.6-4.6) K/mcL Monocytes # (0.0-1.3) K/mcL Eosinophils # (0.0-0.6) K/mcL Basophils # (0.0-0.2) K/mcL Nucleated RBCs/100 WBC (0) /100 WBC Sodium 137 (136-145) mEq/L Potassium 3.8 (3.5-5.1) mEq/L Chloride 109 H (98-107) mEq/L Carbon Dioxide 22 L (23-29) mEq/L BUN 10 (6-20) mg/dL Creatinine 0.72 (0.60-1.20) mg/dL Est GFR ( Amer) > 60 (> 60) Est GFR (Non-Af Amer) > 60 (> 60) BUN/Creatinine Ratio 14 (6-26) Glucose 96 (70-105) mg/dL Calculated Osmolality 283 (280-300) Calcium 9.6 (8.6-10.3) mg/dL Serum , Qual (Negative) Urine Color Dark Yellow (Yellow) Urine Clarity Cloudy A (Clear) Urine pH 5.0 (5.0-8.0) pH Units Ur Specific [place] > 1.030 H (1.010-1.025) Urine Protein Trace (Neg-Trace) mg/dL Urine Glucose (UA) Normal (Normal) mg/dL Urine Ketones Negative (Negative) mg/dL Urine Blood Negative (Negative) Urine Nitrite Negative (Negative) Urine Bilirubin Small H (Negative) Urine Urobilinogen Normal (Normal) mg/dL Ur Leukocyte Esterase Negative (Negative) Urine Microscopic RBC 3-5 H (0-3) per hpf Urine Microscopic WBC 5-15 H (0-3) per hpf Ur Squamous Epith Cells Many H (None-Few) per lpf Calcium Oxalate Crystal Present Urine Bacteria None Seen (None-Few) per hpf Hyaline Casts None Seen (None-Few) per lpf Salicylates < 2.5 L (15.0-30.0) mg/dL Urine Opiates Screen Negative (Kfcwqt=781) ng/mL Acetaminophen < 10 L (10-20) mcg/mL Ur Barbiturates Screen Negative (Mjkfjz=626) ng/mL Ur Phencyclidine Scrn Negative (Cutoff=25) ng/mL Ur Amphetamines Screen Negative (Fumodp=9139) ng/mL U Benzodiazepines Scrn Negative (Wkavne=049) ng/mL Urine Cocaine Screen Negative (Cutoff= 300) ng/mL U Marijuana (THC) Screen Negative (Cutoff = 50) ng/mL Ethyl Alcohol < 10 (Less than 10) mg/dL 01/30/18 01/30/18 Range/Units 06:00 06:00 WBC 9.0 (4.3-11.1) K/mcL RBC 4.31 (3.82-4.97) M/mcL Hgb 12.4 (11.5-15.4) g/dL Hct 37.0 (35.3-44.9) % MCV 85.8 (83.0-100.0) fL MCH 28.8 (28.0-33.3) pg MCHC 33.5 (31.6-35.5) g/dL RDW 13.4 (11.5-14.5) % Plt Count 208 (140-400) K/mcL MPV 10.1 (9.4-12.4) fL Immature Gran % 0.2 (0-4) % Seg Neutrophils % 48.9 % Lymphocytes % 40.4 % Monocytes % 7.0 % Eosinophils % 3.2 % Basophils % 0.3 % Neutrophils # 4.4 (1.6-8.9) K/mcL Lymphocytes # 3.6 (0.6-4.6) K/mcL Monocytes # 0.6 (0.0-1.3) K/mcL Eosinophils # 0.3 (0.0-0.6) K/mcL Basophils # 0.0 (0.0-0.2) K/mcL Nucleated RBCs/100 WBC 0.3 H (0) /100 WBC Sodium (136-145) mEq/L Potassium (3.5-5.1) mEq/L Chloride (98-107) mEq/L Carbon Dioxide (23-29) mEq/L BUN (6-20) mg/dL Creatinine (0.60-1.20) mg/dL Est GFR ( Amer) (> 60) Est GFR (Non-Af Amer) (> 60) BUN/Creatinine Ratio (6-26) Glucose (70-105) mg/dL Calculated Osmolality (280-300) Calcium (8.6-10.3) mg/dL Serum , Qual Negative (Negative) Urine Color (Yellow) Urine Clarity (Clear) Urine pH (5.0-8.0) pH Units Ur Specific [place] (1.010-1.025) Urine Protein (Neg-Trace) mg/dL Urine Glucose (UA) (Normal) mg/dL Urine Ketones (Negative) mg/dL Urine Blood (Negative) Urine Nitrite (Negative) Urine Bilirubin (Negative) Urine Urobilinogen (Normal) mg/dL Ur Leukocyte Esterase (Negative) Urine Microscopic RBC (0-3) per hpf Urine Microscopic WBC (0-3) per hpf Ur Squamous Epith Cells (None-Few) per lpf Calcium Oxalate Crystal Urine Bacteria (None-Few) per hpf Hyaline Casts (None-Few) per lpf Salicylates (15.0-30.0) mg/dL Urine Opiates Screen (Qfcfkc=223) ng/mL Acetaminophen (10-20) mcg/mL Ur Barbiturates Screen (Bsqcct=981) ng/mL Ur Phencyclidine Scrn (Cutoff=25) ng/mL Ur Amphetamines Screen (Bykhjf=6226) ng/mL U Benzodiazepines Scrn (Bbcksz=049) ng/mL Urine Cocaine Screen (Cutoff= 300) ng/mL U Marijuana (THC) Screen (Cutoff = 50) ng/mL Ethyl Alcohol (Less than 10) mg/dL Attestation Statement - Attestation Attestation: Care assumed from Dr. Rob at 7am pending psych eval. Patient cleared medically by Dr. Rob. Patient sleeping at the time of my exam. Behavioral consultation pending 10:34: 1A accepts admission
[2018-01-30] MEDS ORDERED: Mag Hydrox/Al Hydrox/Simeth 30 ML UDC PO PRN (11:05)
[2018-01-30] MEDS ORDERED: MOM Conc 10 ML UD.LIQ PO PRN (11:05)
[2018-01-30] MEDS ORDERED: *HR* LORazepam 1 MG TABLET PO PRN (11:05)
[2018-01-30] MEDS ORDERED: Haloperidol Lactate 5 MG/ML VIAL IM PRN (11:05)
[2018-01-30] MEDS ORDERED: *HR* LORazepam 2 MG/ML VIAL IM PRN (11:05)
[2018-01-30] MEDS ORDERED: hydrOXYzine pamoate 25 MG CAPSULE PO PRN (11:10)
[2018-01-30] MEDS: Gabapentin 300 MG CAPSULE PO SCH ×3 (12:12→20:34)
[2018-01-30] MEDS: Nicotine 21 MG PATCH.TD24 TD SCH (12:12)
[2018-01-30] MEDS: traZODone 50 MG TABLET PO PRN (20:34)
--- NOTE | 2018-01-30 21:21 | Psychiatry History & Physical ---
Date of Encounter: 01/30/18 Time of Encounter: 20:30 History of Present Illness Medicare Admission Attestation: For traditional Medicare patients the provided hospital inpatient services are reasonable and necessary and in the case of services not specified as inpatient -only under 42 CFR 419.22 (n), that they are appropriately provided as inpatient services in accordance 42 CFR 412.3. For Critical Access Hospital the patient may reasonably be expected to be discharged or transferred to a hospital within 96 hours after admission to the Critical Access Hospital. Pt is a 27 yo, , female, x1, currently seperated who presents for mood and depression. Pt noted that she feels she is improving slowly. Pt noted recent hx of exacerbation of depression due to social stresses. Pt noted she feels her anxiety has pushe her suicidal ideations are due to anxiety. Pt noted her stepmother has custody of her son and would not let him call her on mothers day.....I went down from there. Pt denied any side effects to current medications. Pt noted she felt safe and comfortable on the unit. Pt was in agreement with treatment plan. Pt noted that she is doing pretty good today. Pt noted she slept 6-7 hours last night. Pt noted her appetite is okay. Pt rated her depression a 7, on a scale of zero to ten with ten being the worst and zero being none. Pt rate her anxiety a 10, on the same scale. Pt denied any visual hallucinations, however noted chronic auditory hallucinations of voices stating the end of time is near. Pt denied any thoughts to harm herself or anyone else. Pt noted that her parents are alive and live in [place], [place]. Pt noted that her Highest level of education is [employer]. Pt noted she is currently unemployed, receives SSDI. Pt noted ,she has one 4 yo son at home in [place] with her stepmom. Pt noted she is currently living with her boyfriend. Pt noted multiple inpt psychiatric hospitalizations. Pt noted the most recent suicide attempt was 2-3 years ago when she attempted to harm herself via cutting herself with a knife. Pt noted a hx of multiple suicide attempts. Pt noted hx of multiple inpt admissions and most recent was 5 months ago PT unsure of any family mental health hx. No TD noted, AIMS=0 Tobacco: 1-2 ppd Alcohol: once every few months Street: Smoke a little weed now and then Caffeine: 2-3 per day Pt noted current medications: zoloft, buspar, vistiril, quetiapine MSE: Alert and Oriented x4 Appearance: neatly groomed dressed in appropriate civilian attire Behavior: friendly, courteous, polite Speech: Fluent, normal tone, normal rate Mood: depressed Affect: mood congruent Thought content: no HI noted, no SI noted, Questionable delusions noted Psychosis: noted visiual hallucinations. Thought Process: Linear coherent goal directed Judgment: poor. Insight: questionable. 1.Interval hx 2.Continue current medications 3.Review current labs 4.Pt had an opportunity to ask questions and discuss current treatment plan. 5.Supportive therapy was provided 6.Pt encouraged to consider group or individual therapy 7.Pt was in agreement with treatment plan. 8.Pt was educated on the risks benefits and side effects of current medications. Admitted From: Emergency Dept History of Present Illness: Ms. Bowie is a 27 year old female Past Med Surg Social Fam HX - Past Medical History Medical history: asthma, diabetes, renal disease - Past Psychiatric History Psychiatric history: Reports: depression - Social History Smoking Status: Current every day smoker Smokeless Tobacco Status: No Alcohol use: none Drug use: marijuana Medications & Allergies Buspirone HCl [Buspar] 7.5 mg PO BID 30 Days #60 tablet 09/20/17 [Rx] Gabapentin [Neurontin] 300 mg PO TID 30 Days #90 capsule 09/20/17 [Rx] Sertraline [Zoloft] 50 mg PO DAILY 30 Days #30 tablet 09/20/17 [Rx] hydrOXYzine pamoate [HydrOXYzine Pamoate] 25 mg PO TID PRN 30 Days #30 capsule 09/20/17 [Rx] 3 Allergy/AdvReac Type Severity Reaction Status Date / Time Penicillins Allergy Anaphylaxis Verified 01/30/18 10:02 citalopram [From Celexa] AdvReac Irritable Verified 01/30/18 10:02 Paroxetine [From Paxil] AdvReac Irritable Verified 01/30/18 10:02 Review of Systems Constitutional: Denies: fever, chills, weakness, weight change Eyes: Denies: eye pain, vision change Ears, Nose, Throat: Denies: ear pain, throat pain, dental pain, hearing loss, congestion Cardiovascular: Denies: chest pain, palpitations, dyspnea on exertion Respiratory: Denies: cough, dyspnea, wheezes Gastrointestinal: Denies: abdominal pain, nausea, vomiting, diarrhea, constipation Genitourinary female: Denies: urgency, dysuria, frequency, abnormal menses, dyspareunia Musculoskeletal: Denies: joint swelling, joint pain Integumentary: Denies: rash, lesions, pruritus Neurological: Denies: headache, weakness, numbness, memory loss Psychiatric: Reports: depression, suicidal ideation, confusion Endocrine: Denies: fatigue, heat or cold intolerance Hematologic/Lymphatic: Denies: easy bruising, lymphadenopathy Allergic/Immunologic: Denies: urticaria, itchy eyes Exam - Constitutional Vitals: Temp Pulse Resp BP Pulse Ox 98.4 F 56 18 110/72 98 01/30/18 20:04 01/30/18 20:04 01/30/18 20:04 01/30/18 20:04 01/30/18 05:42 - Psychiatric Patient Orientation: Yes Person, Yes Time Level of alertness: Alert Behavior: calm, cooperative Psychomotor activity: Slowed Eye Contact: Maintains Eye Contact Mood Description: Depressed Affect description: congruent with mood Speech Volume: Normal Speech pattern: normal rate, normal rhythm, normal tone, fluent, slowed Language & Vocabulary: consistent with education Thought Process: Intact Thought Content: Yes Intact Attention Span Ability: Capable of Sustained Attention Memory Description: Grossly Intact Patient Reliability: Questionable Historian Fund of knowledge: Yes below average Intelligence Estimate: Below Average Judgment: Fair Insight: Partial Results - Labs Labs: Laboratory Last Values WBC 9.0 K/mcL (4.3-11.1) 01/30/18 06:00 RBC 4.31 M/mcL (3.82-4.97) 01/30/18 06:00 Hgb 12.4 g/dL (11.5-15.4) 01/30/18 06:00 Hct 37.0 % (35.3-44.9) 01/30/18 06:00 MCV 85.8 fL (83.0-100.0) 01/30/18 06:00 MCH 28.8 pg (28.0-33.3) 01/30/18 06:00 MCHC 33.5 g/dL (31.6-35.5) 01/30/18 06:00 RDW 13.4 % (11.5-14.5) 01/30/18 06:00 Plt Count 208 K/mcL (140-400) 01/30/18 06:00 MPV 10.1 fL (9.4-12.4) 01/30/18 06:00 Immature Gran % 0.2 % (0-4) 01/30/18 06:00 Seg Neutrophils % 48.9 % 01/30/18 06:00 Lymphocytes % 40.4 % 01/30/18 06:00 Monocytes % 7.0 % 01/30/18 06:00 Eosinophils % 3.2 % 01/30/18 06:00 Basophils % 0.3 % 01/30/18 06:00 Neutrophils # 4.4 K/mcL (1.6-8.9) 01/30/18 06:00 Lymphocytes # 3.6 K/mcL (0.6-4.6) 01/30/18 06:00 Monocytes # 0.6 K/mcL (0.0-1.3) 01/30/18 06:00 Eosinophils # 0.3 K/mcL (0.0-0.6) 01/30/18 06:00 Basophils # 0.0 K/mcL (0.0-0.2) 01/30/18 06:00 Nucleated RBCs/100 WBC 0.3 /100 WBC (0) H 01/30/18 06:00 Sodium 137 mEq/L (136-145) 01/30/18 05:51 Potassium 3.8 mEq/L (3.5-5.1) 01/30/18 05:51 Chloride 109 mEq/L (98-107) H 01/30/18 05:51 Carbon Dioxide 22 mEq/L (23-29) L 01/30/18 05:51 BUN 10 mg/dL (6-20) 01/30/18 05:51 Creatinine 0.72 mg/dL (0.60-1.20) 01/30/18 05:51 Est GFR ( Amer) > 60 (> 60) 01/30/18 05:51 Est GFR (Non-Af Amer) > 60 (> 60) 01/30/18 05:51 BUN/Creatinine Ratio 14 (6-26) 01/30/18 05:51 Glucose 96 mg/dL (70-105) 01/30/18 05:51 Calculated Osmolality 283 (280-300) 01/30/18 05:51 Calcium 9.6 mg/dL (8.6-10.3) 01/30/18 05:51 Serum , Qual Negative (Negative) 01/30/18 06:00 Urine Color Dark Yellow (Yellow) 01/30/18 06:00 Urine Clarity Cloudy (Clear) A 01/30/18 06:00 Urine pH 5.0 pH Units (5.0-8.0) 01/30/18 06:00 Ur Specific [place] > 1.030 (1.010-1.025) H 01/30/18 06:00 Urine Protein Trace mg/dL (Neg-Trace) 01/30/18 06:00 Urine Glucose (UA) Normal mg/dL (Normal) 01/30/18 06:00 Urine Ketones Negative mg/dL (Negative) 01/30/18 06:00 Urine Blood Negative (Negative) 01/30/18 06:00 Urine Nitrite Negative (Negative) 01/30/18 06:00 Urine Bilirubin Small (Negative) H 01/30/18 06:00 Urine Urobilinogen Normal mg/dL (Normal) 01/30/18 06:00 Ur Leukocyte Esterase Negative (Negative) 01/30/18 06:00 Urine Microscopic RBC 3-5 per hpf (0-3) H 01/30/18 06:00 Urine Microscopic WBC 5-15 per hpf (0-3) H 01/30/18 06:00 Ur Squamous Epith Cells Many per lpf (None-Few) H 01/30/18 06:00 Calcium Oxalate Crystal Present 01/30/18 06:00 Urine Bacteria None Seen per hpf (None-Few) 01/30/18 06:00 Hyaline Casts None Seen per lpf (None-Few) 01/30/18 06:00 Salicylates < 2.5 mg/dL (15.0-30.0) L 01/30/18 05:51 Urine Opiates Screen Negative ng/mL (Okpkeu=277) 01/30/18 06:00 Acetaminophen < 10 mcg/mL (10-20) L 01/30/18 05:51 Ur Barbiturates Screen Negative ng/mL (Pchotw=570) 01/30/18 06:00 Ur Phencyclidine Scrn Negative ng/mL (Cutoff=25) 01/30/18 06:00 Ur Amphetamines Screen Negative ng/mL (Rrjkcy=4445) 01/30/18 06:00 U Benzodiazepines Scrn Negative ng/mL (Mqmpsw=825) 01/30/18 06:00 Urine Cocaine Screen Negative ng/mL (Cutoff= 300) 01/30/18 06:00 U Marijuana (THC) Screen Negative ng/mL (Cutoff = 50) 01/30/18 06:00 Ethyl Alcohol < 10 mg/dL (Less than 10) 01/30/18 05:51 Assessment and Plan (1) Suicidal ideation Current visit: No Status: Acute Plan: Admit inpatient for safety and stabilization Risks, benefits, side effects, alternatives discussed w/pt: Yes Patient agreeable to treatment: Yes (2) Bipolar 2 disorder Current visit: No Status: Acute Plan: Admit inpatient for safety and stabilization Risks, benefits, side effects, alternatives discussed w/pt: Yes Patient agreeable to treatment: Yes (3) Depression Current visit: No Status: Acute Plan: Admit inpatient for safety and stabilization Risks, benefits, side effects, alternatives discussed w/pt: Yes Patient agreeable to treatment: Yes Qualifiers: Depression Type: unspecified Qualified Code(s): F32.9 - Major depressive disorder, single episode, unspecified
[2018-01-30] MEDS: hydrOXYzine pamoate 25 MG CAPSULE PO PRN (22:59)
[2018-01-31] MEDS: Gabapentin 300 MG CAPSULE PO SCH ×3 (08:45→20:44)
[2018-01-31] MEDS: Nicotine 21 MG PATCH.TD24 TD SCH (08:45)
--- NOTE | 2018-01-31 09:55 | Psychiatry Progress Note ---
Date of Encounter: 01/31/18 Time of Encounter: 09:30 Subjective Interval history: Pt is a 27 yo, , female, x1, currently seperated who presents for mood and depression. Pt noted that she is much better today. Pt noted recent hx of exacerbation of depression due to social stresses. Pt noted she feels her anxiety has pushed her suicidal ideations however they are resolved now. Pt denied any side effects to current medications. Pt noted she felt safe and comfortable on the unit. Pt was in agreement with treatment plan. Pt noted that she is doing pretty good today. Pt noted she slept "8 hours last night. Pt noted her appetite is okay. Pt rated her depression a 0, on a scale of zero to ten with ten being the worst and zero being none. Pt rate her anxiety a 0, on the same scale. Pt denied any visual hallucinations , however continued to note chronic auditory hallucinations. Pt denied any thoughts to harm herself or anyone else. No TD noted, AIMS=0 Tobacco: 1-2 ppd Alcohol: once every few months Street: Smoke a little weed now and then Caffeine: 2-3 per day Pt noted current medications: zoloft, buspar, vistiril, quetiapine MSE: Alert and Oriented x4 Appearance: neatly groomed dressed in appropriate civilian attire Behavior: friendly, courteous, polite Speech: Fluent, normal tone, normal rate Mood: better Affect: mood congruent Thought content: no HI noted, no SI noted, Questionable delusions noted Psychosis: noted visiual hallucinations. Thought Process: Linear coherent goal directed, reduction in neurocognition noted Judgment: poor/questionable. Insight: questionable. 1.Interval hx 2.Continue current medications 3.Review current labs 4.Pt had an opportunity to ask questions and discuss current treatment plan. 5.Supportive therapy was provided 6.Pt encouraged to consider group or individual therapy 7.Pt was in agreement with treatment plan. 8.Pt was educated on the risks benefits and side effects of current medications. Review of Systems Constitutional: Denies: fever, chills, weakness, weight change Eyes: Denies: eye pain, vision change Ears, Nose, Throat: Denies: ear pain, throat pain, dental pain, hearing loss, congestion Cardiovascular: Denies: chest pain, palpitations, dyspnea on exertion Respiratory: Denies: cough, dyspnea, wheezes Gastrointestinal: Denies: abdominal pain, nausea, vomiting, diarrhea, constipation Musculoskeletal: Denies: joint swelling, joint pain Neurological: Denies: headache, weakness, numbness, memory loss Psychiatric: Reports: depression, suicidal ideation, confusion Results - Vital Signs Vital Signs: Temp Pulse Resp BP Pulse Ox 97.5 F L 55 18 108/65 98 01/31/18 08:44 01/31/18 08:44 01/31/18 08:44 01/31/18 08:44 01/30/18 05:42 Assessment and Plan (1) Suicidal ideation Current visit: No Status: Acute Risks, benefits, side effects, alternatives discussed w/pt: Yes Patient agreeable to treatment: Yes (2) Bipolar 2 disorder Current visit: No Status: Acute Risks, benefits, side effects, alternatives discussed w/pt: Yes Patient agreeable to treatment: Yes (3) Depression Current visit: No Status: Acute Risks, benefits, side effects, alternatives discussed w/pt: Yes Patient agreeable to treatment: Yes Qualifiers: Depression Type: unspecified Qualified Code(s): F32.9 - Major depressive disorder, single episode, unspecified (4) Intellectual delay Current visit: Yes Status: Acute Plan: Continue hospitalization Risks, benefits, side effects, alternatives discussed w/pt: Yes Patient agreeable to treatment: Yes Consult Discharge Plan - Plan Referrals: NONE,PCP [Primary Care Provider] - Psychiatry Exam - Constitutional Vitals: Temp Pulse Resp BP Pulse Ox 97.5 F L 55 18 108/65 98 01/31/18 08:44 01/31/18 08:44 01/31/18 08:44 01/31/18 08:44 01/30/18 05:42 General appearance: well-groomed - Musculoskeletal Gait: normal Strength & Tone: normal for patient - Psychiatric Patient Orientation: Yes Person, Yes Time, Yes Place Level of alertness: Alert Behavior: calm, cooperative Psychomotor activity: Slowed Eye Contact: Maintains Eye Contact Mood Description: Euthymic/stable Affect description: congruent with mood Speech Volume: Normal Speech pattern: normal rhythm, normal tone, fluent, slowed Language & Vocabulary: consistent with education, limited Thought Process: Intact, Logical, Linear, Goal Oriented, Slowed Thinking Thought Content: Yes Intact Perceptual Disturbances: Yes Auditory hallucinations Attention Span Ability: Capable of Sustained Attention Memory Description: Grossly Intact Patient Reliability: Questionable Historian Fund of knowledge: Yes below average Intelligence Estimate: Below Average Judgment: Limited Insight: Partial
[2018-01-31] MEDS: hydrOXYzine pamoate 25 MG CAPSULE PO PRN ×2 (12:18→20:44)
[2018-01-31] MEDS: Ibuprofen 400 MG TABLET PO PRN (15:43)
[2018-01-31] MEDS: traZODone 50 MG TABLET PO PRN (20:44)
[2018-02-01] MEDS: Gabapentin 300 MG CAPSULE PO SCH ×3 (09:17→21:30)
[2018-02-01] MEDS: Nicotine 21 MG PATCH.TD24 TD SCH (09:17)
[2018-02-01] MEDS: hydrOXYzine pamoate 25 MG CAPSULE PO PRN (13:41)
[2018-02-01] MEDS: Ibuprofen 400 MG TABLET PO PRN (13:42)
--- NOTE | 2018-02-01 21:21 | Psychiatry Progress Note ---
Date of Encounter: 02/01/18 Time of Encounter: 08:40 Subjective Interval history: Pt is a 27 yo, , female, x1, currently seperated who presents for mood and depression. Pt noted that she continues to improve daily. Pt noted recent hx of exacerbation of depression due to social stresses. Pt noted she feels her current medications are working. Pt noted recent exacerbation of nightmares and requested medication for assistance, Pt was educated on prazosin 1 mg PO QHS for nightmares including no medications, pt was in agreement.. Pt denied any side effects to current medications. Pt noted she felt safe and comfortable on the unit. Pt was in agreement with treatment plan. Pt noted that she is doing good today. Pt noted she slept "8 hours broken last night due to nightmares. Pt noted her appetite is okay. Pt rated her depression a 0, on a scale of zero to ten with ten being the worst and zero being none. Pt rate her anxiety a 3, on the same scale. Pt denied any visual hallucinations, however continued to note chronic auditory hallucinations. Pt denied any thoughts to harm herself or anyone else. No TD noted, AIMS=0 Tobacco: 1-2 ppd Alcohol: once every few months Street: Smoke a little weed now and then Caffeine: 2-3 per day MSE: Alert and Oriented x4 Appearance: neatly groomed dressed in appropriate civilian attire Behavior: friendly, courteous, polite Speech: Fluent, normal tone, normal rate Mood: better Affect: mood congruent Thought content: no HI noted, no SI noted, Questionable delusions noted Psychosis: eurrently not responding to internal stimuli. Thought Process: Linear coherent goal directed, reduction in neurocognition noted Judgment: fair/questionable. Insight: fair/questionable. 1.Interval hx 2.Continue current medications 3.Review current labs 4.Pt had an opportunity to ask questions and discuss current treatment plan. 5.Supportive therapy was provided 6.Pt encouraged to consider group or individual therapy 7.Pt was in agreement with treatment plan. 8.Pt was educated on the risks benefits and side effects of current medications. 9. start PRazosin 1 mg PO QHS for nightmares, hold if SBP less than 100, DBP less than 60 or pulse less than 60. Review of Systems Constitutional: Denies: fever, chills, weakness, weight change Eyes: Denies: eye pain, vision change Ears, Nose, Throat: Denies: ear pain, throat pain, dental pain, hearing loss, congestion Cardiovascular: Denies: chest pain, palpitations, dyspnea on exertion Respiratory: Denies: cough, dyspnea, wheezes Gastrointestinal: Denies: abdominal pain, nausea, vomiting, diarrhea, constipation Musculoskeletal: Denies: joint swelling, joint pain Neurological: Denies: headache, weakness, numbness, memory loss Psychiatric: Reports: depression, suicidal ideation, confusion Results - Vital Signs Vital Signs: Temp Pulse Resp BP Pulse Ox 97.5 F L 59 16 104/61 98 02/01/18 20:21 02/01/18 20:21 02/01/18 20:21 02/01/18 20:21 01/30/18 05:42 Assessment and Plan (1) Suicidal ideation Current visit: No Status: Acute Risks, benefits, side effects, alternatives discussed w/pt: Yes Patient agreeable to treatment: Yes (2) Bipolar 2 disorder Current visit: No Status: Acute Risks, benefits, side effects, alternatives discussed w/pt: Yes Patient agreeable to treatment: Yes (3) Depression Current visit: No Status: Acute Risks, benefits, side effects, alternatives discussed w/pt: Yes Patient agreeable to treatment: Yes Qualifiers: Depression Type: unspecified Qualified Code(s): F32.9 - Major depressive disorder, single episode, unspecified (4) Intellectual delay Current visit: Yes Status: Acute Risks, benefits, side effects, alternatives discussed w/pt: Yes Patient agreeable to treatment: Yes Consult Discharge Plan - Plan Additional Instructions: The 09/04 mental health crisis line for [place], [place] is [phone]. Referrals: [employer] [Other] - 02/07/18 10:00 am (Your case is open and active at [facility] in [place], [place]. You must have one appointment in this office before your case can be transferred to the [place] office. You will see Shane Humphrey on 02/07/2018 at 10:00am in the [place] office. After that you will be scheduled with a counselor and psychiatrist in the [place] office within 30 days of your discharge from the hospital.) Psychiatry Exam - Constitutional Vitals: Temp Pulse Resp BP Pulse Ox 97.5 F L 59 16 104/61 98 02/01/18 20:21 02/01/18 20:21 02/01/18 20:21 02/01/18 20:21 01/30/18 05:42 General appearance: age & developmentally appropriate, well-groomed, well- nourished - Musculoskeletal Gait: normal Station: relaxed Strength & Tone: normal for patient - Psychiatric Patient Orientation: Yes Person, Yes Time, Yes Place Level of alertness: Alert Behavior: calm, cooperative, talkative Psychomotor activity: Slowed Eye Contact: Maintains Eye Contact Mood Description: Euthymic/stable, Expansive Affect description: congruent with mood, full range Speech Volume: Normal Speech pattern: normal rate, normal rhythm, normal tone, fluent, spontaneous Language & Vocabulary: consistent with education Thought Process: Linear, Goal Oriented, [place], Slowed Thinking Thought Content: No Suicidal ideation, No Homicidal ideation, No Overt delusions , Yes [place] delusion Perceptual Disturbances: No Auditory hallucinations, No Visual hallucinations Attention Span Ability: Capable of Sustained Attention Memory Description: Grossly Intact Patient Reliability: Questionable Historian Fund of knowledge: Yes average, Yes aware of current events Intelligence Estimate: Below Average Judgment: Limited Insight: Partial
[2018-02-02] MEDS: Gabapentin 300 MG CAPSULE PO SCH ×3 (09:53→20:48)
[2018-02-02] MEDS: Nicotine 21 MG PATCH.TD24 TD SCH (09:54)
[2018-02-02] MEDS: Ibuprofen 400 MG TABLET PO PRN ×2 (13:37→19:42)
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
[2018-02-02] MEDS: hydrOXYzine pamoate 25 MG CAPSULE PO PRN ×2 (15:59→19:42)
[2018-02-02] MEDS: traZODone 50 MG TABLET PO PRN (20:48)
[2018-02-03] MEDS: Nicotine 21 MG PATCH.TD24 TD SCH (09:22)
[2018-02-03] MEDS: Gabapentin 300 MG CAPSULE PO SCH ×3 (09:23→20:54)
[2018-02-03] MEDS: Ibuprofen 400 MG TABLET PO PRN ×2 (09:31→17:47)
[2018-02-03] MEDS: hydrOXYzine pamoate 25 MG CAPSULE PO PRN ×2 (09:31→14:34)
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
[2018-02-03] MEDS: traZODone 50 MG TABLET PO PRN (20:54)
[2018-02-04] MEDS: Nicotine 21 MG PATCH.TD24 TD SCH (08:31)
[2018-02-04] MEDS: Gabapentin 300 MG CAPSULE PO SCH (08:31)
--- NOTE | 2018-02-04 10:58 | Discharge Summary ---
Date of Encounter: 02/04/18 Time of Encounter: 10:58 Diagnosis - Discharge Diagnosis (1) Bipolar 2 disorder Status: Acute (2) Intellectual delay Status: Chronic (3) Suicidal ideation Status: Resolved Medications - Discharge Medications Prescriptions: Ibuprofen [Motrin] 400 mg PO Q6HR PRN 60 Days #30 tablet PRN Reason: Mild Pain Buspirone HCl [Buspar] 7.5 mg PO BID 30 Days #60 tablet Gabapentin [Neurontin] 300 mg PO TID 30 Days #90 capsule hydrOXYzine pamoate [HydrOXYzine Pamoate] 25 mg PO TID PRN 30 Days #30 capsule PRN Reason: Anxiety Prazosin [Minipress] 1 mg PO BID 60 Days #30 capsule Quetiapine Fumarate [Seroquel] 100 mg PO HS PRN 30 Days #30 tablet PRN Reason: Insomnia Sertraline [Zoloft] 100 mg PO DAILY 30 Days #30 tablet traZODone [TraZODone] 50 mg PO HS PRN 30 Days #30 tablet PRN Reason: Insomnia Buspirone HCl [Buspar] 7.5 mg PO BID 30 Days #60 tablet 02/04/18 [Rx] Gabapentin [Neurontin] 300 mg PO TID 30 Days #90 capsule 02/04/18 [Rx] Ibuprofen [Motrin] 400 mg PO Q6HR PRN 60 Days #30 tablet 02/04/18 [Rx] Prazosin [Minipress] 1 mg PO BID 60 Days #30 capsule 02/04/18 [Rx] Quetiapine Fumarate [Seroquel] 100 mg PO HS PRN 30 Days #30 tablet 02/04/18 [Rx] Sertraline [Zoloft] 100 mg PO DAILY 30 Days #30 tablet 02/04/18 [Rx] hydrOXYzine pamoate [HydrOXYzine Pamoate] 25 mg PO TID PRN 30 Days #30 capsule 02/04/18 [Rx] traZODone [TraZODone] 50 mg PO HS PRN 30 Days #30 tablet 02/04/18 [Rx] 3 Allergy/AdvReac Type Severity Reaction Status Date / Time Penicillins Allergy Anaphylaxis Verified 01/30/18 10:02 citalopram [From Celexa] AdvReac Irritable Verified 01/30/18 10:02 Paroxetine [From Paxil] AdvReac Irritable Verified 01/30/18 10:02 Provider Date of admission: 01/30/18 10:46 Primary care physician: PCP NONE Discharging clinician: Scott Pepe Psychiatry Exam - Constitutional Vitals: Temp Pulse Resp BP Pulse Ox 98.0 F 59 16 97/66 98 02/03/18 20:40 02/03/18 20:40 02/03/18 20:40 02/03/18 20:40 01/30/18 05:42 General appearance: age & developmentally appropriate, well-nourished, unkempt - Musculoskeletal Gait: normal Station: relaxed Strength & Tone: normal for patient - Psychiatric Patient Orientation: Yes Person, Yes Time, Yes Place Level of alertness: Alert Behavior: calm, cooperative Psychomotor activity: Normal Eye Contact: Maintains Eye Contact Mood Description: Euthymic/stable Affect description: congruent with mood, full range Speech Volume: Normal Speech pattern: normal rate, normal rhythm, normal tone, fluent, spontaneous Language & Vocabulary: consistent with education Thought Process: Linear, Goal Oriented Thought Content: No Suicidal ideation, No Homicidal ideation, No Overt delusions Perceptual Disturbances: No Auditory hallucinations, No Visual hallucinations Attention Span Ability: Capable of Sustained Attention Memory Description: Grossly Intact Patient Reliability: Reliable Historian Fund of knowledge: Yes abstraction ability, Yes aware of current events Intelligence Estimate: Below Average Judgment: Limited Insight: Partial Hospital Course Hospital course: Ms. Bowie is a 27 year old female She was admitted. She initially presented with suicidal ideation. The patient has been under treatment for period of time and her medications were adjusted. Specifically sertraline was increased 100 mg per day, prazosin was added to her routine medicines and she remained on Seroquel or quetiapine. The patient is also on gabapentin for anxiety. During hospital course the patient's suicidal ideation resolved. The patient participated in webster activities. She showed improvement. At the time of discharge she was free of suicidal ideation and homicidal ideation and psychosis. She reported improved mood The patient expressed wish to return to her mother and father in [facility]. She will be followed by [facility] and has an open case with. She is aware of the emergency helpline. Transportation was arranged for the patient to return to the area. Prescriptions were printed for her to take at the time discharge. [facility]. - Time Spent with Patient Total time spent providing and/or coordinating discharge services: Less than 30 minutes Assessment and Plan - Patient/Caregiver Discharge Instructions Activity: resume usual activities as tolerated Diet: regular diet Additional Instructions: The 09/04 mental health crisis line for [place] is [phone]. - Follow up Plan Follow up with: [facility]. [Other] - 02/07/18 10:00 am (Your case is open and active at [facility] in [place], [place]. You must have one appointment in this office before your case can be transferred to the [place] office. You will see Shane Humphrey on 02/07/2018 at 10:00am in the [place] office. After that you will be scheduled with a counselor and psychiatrist in the [place] office within 30 days of your discharge from the hospital.) Overall status at discharge: patient is back to baseline Disposition: Home, Self-Care Quality - Multiple Antipsychotics Patient discharged on 2 or more antipsychotic medications: No Procedures - Procedures Procedures: Medication Management, Crisis Stabilization, Supportive Therapy, Group Therapy, Psychoeducational Therapy
[2018-02-04 11:05] VITALS: BP 106/70
== END 2018-02-04 13:00 | disposition home or self-care (01) | DRG 885 ==
LOC: EMEROO 05:37 → SUATTDRO 10:46 → 1ANU 10:46
PROVIDERS: ADMIT General Practice; ATTEND Psychiatry & Neurology Forensic Psychiatry